=== PATIENT | female | born 1960 | race Caucasian/White ===

== ENCOUNTER 2017-03-20 06:17 | Emergency (ER) | payer BC ==
[~2017-03-20] VITALS: Ht 162.6 cm; Wt 64.9 kg
--- NOTE | ~2017-03-20 | CT2 ---
[facility] A Service of [facility] / [facility] RADIOLOGY TEXT RESULTS PATIENT: ULYSSES ELIAS LOCATION: [facility] : 60 UNIT #: [id number] AGE: [address]: Lemuel Ramirez DO SEX: F ORDER DR: [id number] [facility] [address] [place], [place] [address] [id number] E MR#: [id number] Acc #: [id number] NAME: ULYSSES ELIAS : 1960 SEX: F STUDY DATE/TIME: 03/20/2017 8:31 UNIT: [facility] ROOM: STUDY DESCRIPTION: CT Abd and Pelv W Cont Attending Physician: Lemuel Ramirez D.O. Ordering Physician: Lemuel Ramirez D.O. Primary Care Physician: Carlos Elmore M.D. MEDICAL IMAGING REPORT This report is preliminary unless electronic signature is present EXAM CT abdomen and pelvis with contrast HISTORY Left-sided flank pain, diarrhea, nausea for 3 days. FINDINGS Axial images form through the abdomen and pelvis following IV and oral contrast. Multiplanar reconstructed images reviewed. This CT exam was performed with one or more of the following radiation dose reduction techniques: automatic control, adjustment of mA and/or kV according to patient size, and iterative reconstruction. ABDOMEN: Lung bases unremarkable. Liver demonstrates mild fatty infiltration. The gallbladder is surgically absent. Spleen appears normal. Pancreas, kidneys and adrenal glands unremarkable. There is diffuse diverticulosis with diffuse colonic wall thickening may be indicative of diffuse colitis. Given the lack of focality underlying diverticulitis considered unlikely and there is no significant pericolonic inflammatory change. Stomach, small bowel unremarkable. There are a few small celiac axis lymph nodes. A small amount of retroperitoneal lymphadenopathy. Appendix normal. PELVIS: Bladder uterus and adnexa appear normal. L4-5 advanced degenerative disc disease with a moderate spinal or foraminal stenosis. There is a small amount of soft tissue gas in the left gluteal region probably related to therapeutic injection. IMPRESSION [facility] A Service of [facility] / [facility] RADIOLOGY TEXT RESULTS PATIENT: ULYSSES ELIAS LOCATION: [facility] : 60 UNIT #: [id number] AGE: [address]: Lemuel Ramirez DO SEX: F ORDER DR: 1. Colonic diverticulosis with diffuse colonic wall thickening most prominent within the transverse and descending colon. Findings could reflect a underlying colitis possibly infectious or inflammatory in nature. Given its lack of focality this does not appear to represent diverticulitis and there is no focal pericolonic inflammatory change. 2. Fatty infiltration of the liver in this patient post cholecystectomy. 3. A small amount of celiac and retroperitoneal lymphadenopathy nonspecific. Dictated by... Alberto Sepulveda M.D. THIS IS AN ELECTRONICALLY VERIFIED REPORT Alberto Sepulveda M.D. at 03/20/2017 4:04 PM MARQUISE/shady TD: 03/20/2017 13:25 JOB #: [id number] MEDICAL IMAGING REPORT Page 1 of 1 COPY
[~2017-03-20 06:17] MED LIST: AMOXICILLIN PO; CELEXA PO; CHANTIX PO; DESYREL50 MG PO; ESCITALOPRAM OX10 MG PO; FLEXERIL PO; IBUPROFEN800 MG PO; KETOPROFEN PO; LEVOTHROID25 MCG PO; LISINOPRIL PO; LORTAB 7.5-5001 TAB PO; METFORMIN HCL500 M1 PO; METFORMIN PO; OMEPRAZOLE40 M1 PO; PHENERGAN25 M1 DOB; PHENERGAN25 MG PO; SYNTHROID PO; TUMS; WELLBUTRIN PO; ZITHROMAX PO
[2017-03-20 07:05] LABS: URINE SOURCE CLEAN CATCH
[2017-03-20 07:10] LABS: BASOPHIL# 0.1 X10e3 (0-0.3); BASOPHIL% 0.9 % (0-2.5); EOSINOPHIL# 0.6 X10e3 (0-0.7); EOSINOPHIL% 5.1 % (0.0-7.0); HEMATOCRIT 43.1 % (35.0-45.0); HEMOGLOBIN 14.6 gm/dL (12.0-16.0); LYMPHOCYTE# 2.9 X10e3 (1.0-3.5); LYMPHOCYTE% 23.1 % (17.0-45.0); MEAN CELL VOLUME 87.7 FL (83-96); MEAN CORPUSCULAR HEMOGLOBIN 29.7 PG (28-34); MEAN CORPUSCULAR HGB CONC 33.8 g/dL (30-36); MEAN PLATELET VOLUME 9.1 FL (6.5-11.5); MONOCYTE# 0.8 X10e3 (0-1.0); MONOCYTE% 6.6 % (3.0-12.0); NEUTROPHIL# 8.1 X10e3 (1.5-7.1); NEUTROPHIL% 64.3 % (40-75); PLATELET COUNT 199 X10e3 (140-420); RED BLOOD COUNT 4.91 X10e (3.90-5.30); RED CELL DISTRIBUTION WIDTH 13.8 % (11.0-15.5); WHITE BLOOD COUNT 12.5 X10e3 (4.0-10.5)
[2017-03-20 07:12] LABS: URINE APPEARANCE CLEAR; URINE BILIRUBIN NEG (NEG); URINE BLOOD NEG (NEG); URINE COLOR YELLOW; URINE GLUCOSE 250 MG/DL (NEG); URINE KETONE NEG (NEG); URINE LEUKOCYTE ESTERASE 1+ (NEG); URINE NITRATE NEG (NEG); URINE PROTEIN NEG (NEG); URINE SPECIFIC GRAVITY 1.022 (1.003-1.035); URINE UROBILINOGEN 0.2 MG/DL (NEG)
[2017-03-20 07:15] LABS: CULTURE INDICATED? YES; U HYALINE CASTS AUWI 0-2 /[LPF]; URBCS1 AUWI 0-2 /[HPF] (0-2); URINE BACTERIA AUWI NEG (NEGATIVE); URINE SQUAMOUS EPITHELIAL CELL FEW /[HPF]
[2017-03-20 07:17] LABS: DIFF IND NO
[2017-03-20 07:34] LABS: BILIRUBIN, DIRECT 0.1 mg/dL (0.0-0.2); BILIRUBIN,INDIRECT 0.5 mg/dL (0.0-0.9); BILIRUBIN,TOTAL 0.6 mg/dL (0.2-2.0); BUN/CREATININE RATIO 14.28; CALCIUM SERUM 9.1 mg/dL (8.4-10.2); CREATININE SERUM 0.7 mg/dL (0.6-1.4); GLOM FILT RATE Estimated 96.9 mL/min (>60); POTASSIUM 3.8 mmol/L (3.5-5.1); PROTEIN TOTAL SERUM 7.2 g/dL (6.0-8.3)
== END 2017-03-20 10:42 | disposition home or self-care (01) ==
LOC: CED 06:17
DX: K52.9 Noninfective gastroenteritis and colitis, unspecified (principal); E11.9 Type 2 diabetes mellitus without complications; I10 Essential (primary) hypertension; E03.9 Hypothyroidism, unspecified; F17.200 Nicotine dependence, unspecified, uncomplicated; Z90.49 Acquired absence of other specified parts of digestive tract
CPT/HCPCS: 36415; 74177; 80048; 80076; 81003; 83690; 85025; 87045; 87086; 87177; 87209; 87427; 87493; 87899; 96372; 96374; 96375; 99285; J0500; J2270; J2405; Q9967